=== PATIENT | female | born 1980 | race American Indian/Alaskan Native ===

== ENCOUNTER 2016-10-10 07:05 | Emergency (ER) | payer SELFPAY ==
[2016-10-10 07:21] VITALS: BP 127/82
[2016-10-10] MEDS ORDERED: ROBITUSSIN AC PO ONE (10:51)
[2016-10-10] MEDS ORDERED: DELTASONE PO ONE (10:51)
[2016-10-10] MEDS ORDERED: DUONEB 0.5 MG-3 MG/3 ML SOLN IH ONE (10:51)
--- NOTE | 2016-10-10 11:03 | Emergency Department Report ---
HPI - General Chief Complaint: Upper Respiratory Infection Time Seen by Provider: 10/10/16 10:51 - HPI HPI: This is a 36-year-old Afro-[place] female who presents to the emergency department with complaint of a 2 month history of sinus congestion and sinus drainage. More recently the sinus drainage has caused an exacerbation of her asthma she complains of some coughing, wheezing and shortness of breath. She has tried [id number]-[id number] sprays and medications for her sinus issues without any relief. She is also taken her albuterol and Advair inhalers over the past few days. She does not currently have a primary care doctor she just moved here 2 months ago from [facility]. No sick contacts at home. No fever , nausea, vomiting, chest pain, diarrhea. She was dropped off to be seen today by her father. ED Past Medical Hx - Past Medical History Previous Medical History?: Yes Hx Asthma: Yes Additional medical history: Vaginal delivery x 2 - Surgical History Past Surgical History?: Yes Additional Surgical History: x 1 - Social History Smoking Status: Never Smoker Substance Use Type: Alcohol, Prescribed, Other - Medications Home Medications: Home Medications Medication Instructions Recorded Confirmed Last Taken Type ALBUTEROL Inhaler [Proair] 2 puff IH QID PRN 10/10/16 10/10/16 10/10/16 History ALBUTEROL NEB's [Proventil 0.083% 10/10/16 10/10/16 History NEBS] Advair Diskus 500-50 mcg 10/10/16 10/09/16 History Azithromycin [Zithromax Z-ELLIE] 250 mg PO DAILY #6 tab 10/10/16 Unknown Rx Diphenhydramine HCl [Allergy 25 mg PO DAILY 10/10/16 10/10/16 10/09/16 History Medicine] Montelukast [Singulair] 10 mg PO QPM 10/10/16 10/10/16 10/09/16 History guaiFENesin/CODEINE [Robitussin AC] 5 ml PO Q6H PRN #80 oral.liqd 10/10/16 Unknown Rx predniSONE [Deltasone] 20 mg PO BID #10 tab 10/10/16 Unknown Rx ED Review of Systems ROS: Stated complaint: ASTHMA Other details as noted in HPI Comment: All other systems reviewed and negative Constitutional: denies: chills, fever Eyes: denies: eye pain, eye discharge, vision change ENT: congestion. denies: throat pain Respiratory: cough, wheezing Cardiovascular: denies: chest pain, palpitations Gastrointestinal: denies: abdominal pain, nausea, diarrhea Genitourinary: denies: urgency, dysuria, discharge Musculoskeletal: denies: back pain, joint swelling, arthralgia Skin: denies: rash, lesions Neurological: denies: headache, weakness, paresthesias Physical Exam - Physical Exam Vital Signs: Vital Signs 10/10/16 07:18 Temperature 97.8 F Pulse Rate 79 Respiratory 18 Rate Blood Pressure 127/82 O2 Sat by Pulse 98 Oximetry Physical Exam: GENERAL: The patient is well-developed well-nourished. HEENT: Normocephalic. Atraumatic. Extraocular motions are intact. Patient has moist mucous membranes. Pupils equal reactive to light bilaterally. Oropharynx clear. Patient has already nasal mucosa and tox with a nasally voice. NECK: Supple. Trachea is midline. CHEST/LUNGS: Mild to moderate wheezing throughout the chest. An occasional dry cough heard. No tachypnea or accessory muscle use. There is no respiratory distress noted. HEART/CARDIOVASCULAR: Regular. There is no tachycardia. There is no gallop rub or murmur. ABDOMEN: Abdomen is soft, nontender. Patient has normal bowel sounds. There is no abdominal distention. SKIN: There is no rash. There is no edema. There is no diaphoresis. NEURO: The patient is awake, alert, and oriented. The patient is cooperative. The patient has no focal neurologic deficits. The patient has normal speech. MUSCULOSKELETAL: There is no tenderness or deformity. There is no limitation range of motion. There is no evidence of acute injury. ED Course Vital Signs 10/10/16 07:18 Temperature 97.8 F Pulse Rate 79 Respiratory 18 Rate Blood Pressure 127/82 O2 Sat by Pulse 98 Oximetry ED Medical Decision Making - Radiology Data Radiology results: image reviewed interpreted by me: Chest x-ray did not show any acute process. Heart is normal shape and size. No effusions. No pneumothorax. No signs of pneumonia seen. - Medical Decision Making 36-year-old female with chronic sinus infection that appears to be exacerbating her asthma. Patient does appear to show some bronchospasm. Patient given a DuoNeb treatment and some steroids. The breathing treatment did help with the wheezing and bronchospasm. Patient was given a dose of Robitussin-AC for her cough. Chest x-ray does not show any acute process. Patient's vital signs stable including being afebrile. She'll be treated with a Z-Ellie, a five-day course of steroids and she will be given referrals for primary care. She is to return to the ER with any worsening of her symptoms or any acute distress. - Differential Diagnosis asthma, pneumonia, bronchitis, sinusitis, viral syndrome Critical Care Time: No Critical care attestation.: If time is entered above; I have spent that time in minutes in the direct care of this critically ill patient, excluding procedure time. ED Disposition Clinical Impression: Bronchospasm Sinusitis Qualifiers: Sinusitis location: unspecified location Chronicity: chronic Qualified Code(s) : J32.9 - Chronic sinusitis, unspecified Asthma Qualifiers: Asthma severity: unspecified severity Asthma complication type: with acute exacerbation Qualified Code(s): J45.901 - Unspecified asthma with (acute) exacerbation Disposition: DISCHARGED TO HOME OR SELFCARE Is pt being admited?: No Does the pt Need Aspirin: No Condition: Good Instructions: Asthma (ED), Sinusitis (ED) Additional Instructions: Please follow up with one of the primary care physician referrals that I have given you. Take the steroids as prescribed. Use your inhalers and over-the- counter medications as necessary. Return to the emergency department with any worsening of your symptoms or any acute distress. You've been prescribed a medication that is sedating, Robitussin AC. Therefore this medication cannot be mixed with alcohol, or taken prior to driving, working, or being responsible for children. Prescriptions: predniSONE [Deltasone] 20 mg PO BID #10 tab guaiFENesin/CODEINE [Robitussin AC] 5 ml PO Q6H PRN #80 oral.liqd PRN Reason: Cough Azithromycin [Zithromax Z-ELLIE] 250 mg PO DAILY #6 tab Referrals: PRIMARY MD JOSHUA [Primary Care Provider] - 3-5 Days AINSLEY AZEVEDO MD [Staff Physician] - 3-5 Days [facility] [Outside] - 3-5 Days Time of Disposition: 11:42
--- NOTE | 2016-10-10 11:33 | XRay Report ---
ROUTINE CHEST, TWO VIEWS: HISTORY: Cough. The trachea, heart, mediastinal contour, lung mejias and bony thorax are unremarkable. IMPRESSION: Unremarkable chest x-ray.
== END 2016-10-10 11:51 | disposition home or self-care (01) ==
LOC: ED 07:05
DX: J32.9 Chronic sinusitis, unspecified (principal); J45.901 Unspecified asthma with (acute) exacerbation; J98.01 Acute bronchospasm
CPT/HCPCS: 71020; 94640; 99283; J7512

== ENCOUNTER 2017-09-22 17:20 | Emergency (ER) | payer MEDICAID ==
[2017-09-22 17:29] VITALS: BP 125/71
[2017-09-22 17:53] LABS: Basophils # (Auto) 0.1 K/mm3 (0.0-0.1); Eosinophils % (Auto) 13.4 % (0.0-4.3); Hematocrit 37.1 % (30.3-42.9); Lymphocytes # (Auto) 2.6 K/mm3 (1.2-5.4); Lymphocytes % (Auto) 33.1 % (13.4-35.0); Mean Corpuscular HGB Conc 32 % (30-34); Mean Corpuscular Hemoglobin 26 pg (28-32); Mean Corpuscular Volume 82 fl (79-97); Monocytes # (Auto) 0.7 K/mm3 (0.0-0.8); Monocytes % (Auto) 8.8 % (0.0-7.3); Platelet Count 375 K/mm3 (140-440); Red Blood Count 4.55 M/mm3 (3.65-5.03); Red Cell Distribution Width 15.5 % (13.2-15.2)
[2017-09-22 18:19] LABS: Bilirubin,Urine NEG (Negative); Blood,Urine LG (Negative); Color,Urine Yellow (Yellow); Mucus,Urine FEW /HPF; Nitrite,Urine NEG (Negative); Protein,Urine <15 mg/dL mg/dL (Negative); WBC,Urine < 1.0 /HPF (0.0-6.0)
[2017-09-22 18:32] LABS: RBC,Urine > 182.0 /HPF (0.0-6.0)
== END 2017-09-22 20:40 | disposition left against medical advice (07) ==
LOC: ED 17:20
DX: J45.909 Unspecified asthma, uncomplicated (principal); Z53.21 Procedure and treatment not carried out due to patient leaving prior to being seen by health care provider
CPT/HCPCS: 36415; 81001; 84703; 85025; 86850; 86900; 86901

== ENCOUNTER 2017-10-14 08:18 | Emergency (ER) | payer SELFPAY ==
[2017-10-14] MEDS ORDERED: DUONEB *Not for PRN Use IH ONE (11:47)
--- NOTE | 2017-10-14 11:48 | Emergency Department Report ---
Minor Respiratory - HPI Chief Complaint: Adult Asthma Stated Complaint: ASTHMA Time Seen by Provider: 10/14/17 11:16 Duration: 3 Days Pain Location: Facial, Throat, Chest Severity: moderate Minor Respiratory: Yes Rhinorrhea, Yes Sore Throat, Yes Able to Tolerate Fluids , Yes Ear Pain, Yes Cough, Yes Fever (earlier in week), No Sick Contacts, No Hemoptysis, No Chest Pain, No Shortness of Breath Other History: pmh asthma. sinus congestion and nasal congestion. w bilatral wheezing ED Review of Systems ROS: Stated complaint: ASTHMA Other details as noted in HPI Comment: All other systems reviewed and negative Constitutional: no symptoms reported, see HPI Eyes: as per HPI ENT: as per HPI, ear pain, throat pain, congestion (nasal). denies: dental pain , hearing loss, epistaxis Respiratory: no symptoms reported, cough, wheezing Cardiovascular: as per HPI Endocrine: no symptoms reported Gastrointestinal: as per HPI Genitourinary: as per HPI Musculoskeletal: as per HPI Skin: as per HPI Neurological: as per HPI Psychiatric: as per HPI Hematological/Lymphatic: as per HPI ED Past Medical Hx - Past Medical History Previous Medical History?: Yes Hx Asthma: Yes Additional medical history: Vaginal delivery x 2 - Surgical History Past Surgical History?: Yes Additional Surgical History: x 1. Left fallopian tube is tied. - Social History Smoking Status: Never Smoker Substance Use Type: Alcohol, Prescribed - Medications Home Medications: Home Medications Medication Instructions Recorded Confirmed Last Taken Type ALBUTEROL Inhaler [Proair] 2 puff IH QID PRN 10/10/16 10/10/16 10/10/16 History ALBUTEROL NEB's [Proventil 0.083% 10/10/16 10/10/16 History NEBS] Montelukast [Singulair] 10 mg PO QPM 10/10/16 10/10/16 10/09/16 History Amoxicillin 500 mg PO BID #20 capsule 10/14/17 Unknown Rx Benzonatate [Tessalon Perles] 100 mg PO Q8HR PRN #20 capsule 10/14/17 Unknown Rx Fluticasone [Flonase] 1 spray NS QDAY #1 bottle 10/14/17 Unknown Rx predniSONE [Deltasone] 20 mg PO DAILY #5 tablet 10/14/17 Unknown Rx Minor Respiratory Exam - Exam General: Vital signs noted. No distress. Alert and acting appropriately. HEENT: Yes Pharyngeal Erythema, Yes Moist Mucous Membranes, Yes Rhinorrhea, Yes Frontal Tenderness, Yes Maxillary Tenderness, No Pharyngeal Exudates, No Conjuctival Injection Ear: Both TM Erythema, Neither TM Bulge, Neither EAC Pain, Neither EAC Discharge Neck: Yes Supple, No Adenopathy Lungs: Yes Good Air Exchange, Yes Wheezes, Yes Cough, No Ronchi, No Stridor, No Labored Respirations, No Retractions, No Use of Accessory Muscles, No Other Abnormal Lung Sounds Heart: Yes Regular, No Murmur Abdomen: Yes Normal Bowel Sounds, No Tenderness, No Peritoneal Signs Skin: No Rash, No Edema Neurologic: Alert and oriented, no deficits. Musculoskeletal: Unremarkable. ED Course Vital Signs 10/14/17 08:39 Temperature 98.4 F Pulse Rate 96 H Respiratory 20 Rate Blood Pressure 129/86 O2 Sat by Pulse 98 Oximetry - Reevaluation(s) Reevaluation #1: 10/14/17 11:57 She presents to the ER today with a several day history of upper respiratory tract signs and symptoms she says it started as sinus congestion and nasal stuffiness progressed to fever which she reports having a couple days ago but is afebrile today in the emergency room. Patient is a known asthmatic on numerous medications at home including albuterol nebs earlier Symbicort. On exam patient does have bilateral wheezing. Bilateral maxillary and frontal sinus tenderness. Heart rate 90 on provider exam. Satting 98% on room air on admission to the ER. IM Solu-Medrol and DuoNeb provided. Discussed with patient progress of signs and symptoms occurring over several days with fever cough and sputum so will need antibiotics. ED Medical Decision Making - Medical Decision Making See note patient is nontoxic afebrile present good saturations on room air. - Differential Diagnosis upper respiratory tract infection versus lower respiratory tract infection: Critical care attestation.: If time is entered above; I have spent that time in minutes in the direct care of this critically ill patient, excluding procedure time. ED Disposition Clinical Impression: Asthma, Upper respiratory infection, Sinusitis Disposition: - TO HOME OR SELFCARE Is pt being admited?: No Does the pt Need Aspirin: No Condition: Stable Instructions: Asthma (ED) Additional Instructions: Rest Hydrate well with water continue home albuterol and Provera as well as Symbicort Motrin or Tylenol for pain or fever Indications as ordered today as prescribed until gone Follow-up with primary care doctor this week to make sure that she were improving with medications Avoid asthma triggers Return to the emergency room for fever greater than 100.5 the will not decrease with Tylenol or Motrin, shortness of breath, or chest pain. See attached discharge instructions Prescriptions: Amoxicillin 500 mg PO BID #20 capsule Benzonatate [Tessalon Perles] 100 mg PO Q8HR PRN #20 capsule PRN Reason: Cough Fluticasone [Flonase] 1 spray NS QDAY #1 bottle predniSONE [Deltasone] 20 mg PO DAILY #5 tablet Referrals: PRIMARY CARE, [Primary Care Provider] - 3-5 Days DESTINEE NAVA MD [Staff Physician] - 3-5 Days Time of Disposition: 12:00
[2017-10-14 12:11] VITALS: BP 125/84
== END 2017-10-14 12:28 | disposition home or self-care (01) ==
LOC: ED 08:18
DX: J45.909 Unspecified asthma, uncomplicated (principal); J32.9 Chronic sinusitis, unspecified; Z88.1 Allergy status to other antibiotic agents; Z88.2 Allergy status to sulfonamides
CPT/HCPCS: 87400; 94640; 96372; 99283; J2930